=== PATIENT | male | born 1960 | race Caucasian/White ===

== ENCOUNTER → 2019-04-10 | Outpatient (CLI) | payer OTHER ==
--- NOTE | 2019-04-10 20:07 | XCELERA REPORT ---
[address] [address] Transthoracic Echocardiogram Report Name: TIFFANIE BUTT Age: 58 yrs Gender: Male : 1960 Patient Status: Outpatient Patient Location: Study Date: 04/10/2019 10:37 AM Height: 69 in Weight: 225 lb BSA: 2.2 m2 Procedure: A complete two-dimensional transthoracic echocardiogram was performed (2D, M-mode, spectral and color flow Doppler). The study was technically adequate with some images being suboptimal in quality. Reason For Study: PALPATIONS Ordering Physician: BETTY HAIDER Performed By: Floridalma Zarco Interpretation Summary The left ventricular ejection fraction is normal. There is borderline concentric left ventricular hypertrophy. The left ventricle is grossly normal size. Doppler measurements suggest impaired left ventricular relaxation, which is associated with grade I/IV or mild diastolic dysfunction Not all wall segments were well visualized. Wall motion cannot be accurately commented on, but no definite regional wall motion abnormalities noted. The right ventricular systolic function is normal. The right ventricle is mildly dilated. The left atrium is mildly dilated. The right atrium is normal in size There is a mild to moderate amount of mitral regurgitation There is no mitral valve stenosis. No aortic regurgitation is present. There is no aortic valve stenosis There is a trace or physiologic amount of tricuspid regurgitation Tricuspid regurgitation jet envelope not well defined to measure RV systolic pressure accurately. The aortic root is not well visualized but is probably normal size. The inferior vena cava appeared normal and decreased > 50% with respiration (RAP 5-10 mmHg) There is no pericardial effusion. MMode/2D Measurements & Calculations RVDd: 4.1 cm LVIDd: 5.7 cm FS: 38.9 % Ao root diam: IVSd: 0.97 cm LVIDs: 3.5 cm EDV(Teich): 3.3 cm 158.3 ml Ao root area: LVPWd: 1.00 cm ESV(Teich): 8.6 cm2 49.6 ml EF(Teich): 68.7 % EDV(MOD-sp4): SV(MOD-sp4): 148.1 ml 80.6 ml ESV(MOD-sp4): 67.6 ml EF(MOD-sp4): 54.4 % Doppler Measurements & Calculations MV E max christina: MV dec slope: Ao V2 max: LV V1 max P.4 cm/sec 128.2 cm/sec 3.2 mmHg MV A max christina: 213.9 cm/sec2 Ao max PG: LV V1 max: 89.1 cm/sec MV dec time: 0.24 sec 6.6 mmHg 89.0 cm/sec MV E/A: 0.57 LV dP/dt: 1581 mmHg/s PA V2 max: 166.1 cm/sec PA max P.0 mmHg Left Ventricle The left ventricle is grossly normal size. There is borderline concentric left ventricular hypertrophy. The left ventricular ejection fraction is normal. Doppler measurements suggest impaired left ventricular relaxation, which is associated with grade I/IV or mild diastolic dysfunction. Not all wall segments were well visualized. Wall motion cannot be accurately commented on, but no definite regional wall motion abnormalities noted. Right Ventricle The right ventricle is mildly dilated. There is normal right ventricular wall thickness. The right ventricular systolic function is normal. Atria The right atrium is normal in size. The left atrium is mildly dilated. Interarterial septum not well visualized and not well dopplered. Cannot comment on ASD/PFO presence. Mitral Valve The mitral valve leaflets are sclerotic, but show no functional abnormalities. There is no mitral valve stenosis. There is a mild to moderate amount of mitral regurgitation. Aortic Valve The aortic valve is sclerotic, but shows no functional abnormality. There is no aortic valve stenosis. No aortic regurgitation is present. Tricuspid Valve The tricuspid valve is not well visualized, but is grossly normal. There is no tricuspid stenosis. There is a trace or physiologic amount of tricuspid regurgitation. Tricuspid regurgitation jet envelope not well defined to measure RV systolic pressure accurately. Pulmonic Valve The pulmonic valve is not well visualized. Great Vessels The aortic root is not well visualized but is probably normal size. The inferior vena cava appeared normal and decreased > 50% with respiration (RAP 5-10 mmHg). Effusions There is no pericardial effusion. : BETTY HAIDER > Jorje Nguyen
== END ==
LOC: SP 10:04
PROVIDERS: ATTEND Physician Assistant
DX: R00.2 Palpitations (principal); Z72.0 Tobacco use; I10 Essential (primary) hypertension; I70.0 Atherosclerosis of aorta; I70.8 Atherosclerosis of other arteries; M54.2 Cervicalgia; R68.82 Decreased libido; M77.9 Enthesopathy, unspecified; R94.5 Abnormal results of liver function studies
CPT/HCPCS: 93306